=== PATIENT | male | born 1990 | race American Indian/Alaskan Native ===

== ENCOUNTER 2018-11-01 12:07 | Inpatient (IN) | payer OTHER ==
[2018-11-01] MEDS ORDERED: Iohexol 240 (50 ml) PO ONE (12:57)
--- NOTE | 2018-11-01 13:10 | ED PDOC ---
HPI: Abdomen Time Seen by Provider: 11/01/18 12:52 Chief Complaint (Nursing): Abdominal Pain Chief Complaint (Provider): abdominal pain, fever, diarrhea History Per: Patient History/Exam Limitations: no limitations Onset/Duration Of Symptoms: Days (2) Current Symptoms Are (Timing): Still Present Severity: Moderate Location Of Pain/Discomfort: Diffuse Quality Of Discomfort: Cramping Associated Symptoms: Diarrhea, Loss Of Appetite. denies: Nausea, Vomiting Exacerbating Factors: None Alleviating Factors: None Last Bowel Movement: Today Additional Complaint(s): 28yo male c/o abdominal pain, diffuse/crampy ongoing since sun night, last night had fevers and diarrhea overnight. Denies vomiting. Notes some loss appetite. No syncope, melena, rash, headache, cough or back pain. Notes had URI last week, sore throat, resolved spontaneously. Past Medical History Reviewed: Historical Data, Nursing Documentation, Vital Signs Vital Signs: Last Vital Signs Temp 98.6 F 11/01/18 12:16 Pulse 77 11/01/18 12:16 Resp 16 11/01/18 12:16 BP 155/75 H 11/01/18 12:16 Pulse Ox 96 11/01/18 12:16 - Medical History PMH: No Chronic Diseases - Surgical History Surgical History: No Surg Hx - Family History Family History: States: Unknown Family Hx - Allergies Allergies/Adverse Reactions: Allergies Allergy/AdvReac Type Severity Reaction Status Date / Time sulfamethoxazole Allergy RASH Verified 11/01/18 12:15 [From Bactrim] trimethoprim [From Bactrim] Allergy RASH Verified 11/01/18 12:15 Review of Systems ROS Statement: Except As Marked, All Systems Reviewed And Found Negative Constitutional: Positive for: Fever, Chills, Malaise. Negative for: Weight loss ENT: Positive for: Throat Pain. Negative for: Ear Pain Cardiovascular: Negative for: Chest Pain Respiratory: Negative for: Cough, Shortness of Breath Gastrointestinal: Positive for: Abdominal Pain, Diarrhea. Negative for: Nausea, Vomiting Genitourinary Male: Negative for: Dysuria Musculoskeletal: Negative for: Neck Pain, Arm Pain, Back Pain, Leg Pain Skin: Negative for: Rash, Lesions, Jaundice Neurological: Negative for: Weakness, Numbness, Change in Speech, Headache, Dizziness Physical Exam - Reviewed Nursing Documentation Reviewed: Yes Vital Signs Reviewed: Yes - Physical Exam Appears: Positive for: Well, Non-toxic, No Acute Distress Head Exam: Positive for: ATRAUMATIC, NORMAL INSPECTION, NORMOCEPHALIC Skin: Positive for: Normal Color, Warm, DRY Eye Exam: Positive for: EOMI, Normal appearance, PERRL ENT: Positive for: Normal ENT Inspection Neck: Positive for: Normal, Painless ROM Cardiovascular/Chest: Positive for: Regular Rate, Rhythm Respiratory: Positive for: CNT, Normal Breath Sounds Pulses-Radial (L): 3+/4+ Pulses-Radial (R): 3+/4+ Gastrointestinal/Abdominal: Positive for: Soft, Tenderness (mild nonfocal tenderness). Negative for: Distended, Guarding Back: Positive for: Normal Inspection Extremity: Positive for: Normal ROM Neurological/Psych: Positive for: Awake, Alert, Normal Tone, Oriented. Negative for: Motor/Sensory Deficits - Laboratory Results Result Diagrams: 11/01/18 13:00 11/01/18 13:30 - ECG O2 Sat by Pulse Oximetry: 96 Medical Decision Making Medical Decision Making: workup for abd pain w diarrhea, subjective fevers initiated labs, CT abd pelv and IVF ordered labs reviewed, reveal elev WBC 15.8 chem unremarkable lipase normal trace LFTs derangement elev Tbili 1.6 Ct abd pelv pending, endose Dr Watson 3pm Disposition - Clinical Impression Clinical Impression: Abdominal pain, Leukocytosis - Patient ED Disposition Is Patient to be Admitted: Transfer of Care - Disposition Disposition: Transfer of Care Disposition Time: 15:00 Condition: STABLE Forms: [employer] ([place]) Patient Signed Over To: Enriqueta Watson Handoff Comments: CT abd pelv and re-eval, dispo
[2018-11-01] MEDS ORDERED: Sodium Chloride 0.9% 1,000 ML IV STA (13:12)
[2018-11-01 13:14] LABS: BASO # 0.1 K/uL (0.0-0.2); BASO % 0.5 % (0.0-2.0); EOS % 0.1 % (0.0-4.0); HEMOGLOBIN 12.9 g/dL (12.0-18.0); LYMPH # 1.2 K/uL (1.0-4.3); LYMPH % 7.4 % (20.0-40.0); MEAN CELL VOLUME 90.1 fl (80.0-94.0); MEAN CORPUSCULAR HEMOGLOBIN 29.9 pg (27.0-31.0); MEAN CORPUSCULAR HGB CONC 33.2 g/dL (33.0-37.0); MEAN PLATELET VOLUME 10.2 fl (7.2-11.7); MONO # 1.4 K/uL (0.0-0.8); NEUT # 13.1 K/uL (1.8-7.0); NRBC % 0.1 % (0.0-0.0); PLATELET COUNT 246 K/uL (130-400); RBC 4.32 Mil/uL (4.40-5.90); RED CELL DISTRIBUTION WIDTH 12.2 % (11.5-14.5); WHITE BLOOD COUNT 15.8 K/uL (4.8-10.8)
[2018-11-01] MEDS ORDERED: Iohexol 240 (50 ml) ONE (13:29)
[2018-11-01 13:50] LABS: ALBUMIN 4.7 g/dL (3.5-5.0); ALT/SGPT 14 U/L (21-72); AST/SGOT 19 U/L (17-59); BLOOD UREA NITROGEN 9 mg/dl (9-20); CALCIUM 9.7 mg/dL (8.4-10.2); GFR NON-AFRICAN AMERICAN > 60; LIPASE 26 U/L (23-300)
[2018-11-01 13:51] LABS: LYMPHOCYTE 4 % (20-50); MONOCYTE 12 % (0-10); NEUTROPHIL 84 % (42-75); PLATELET ESTIMATE NORMAL (NORMAL); TOTAL CELLS COUNTED 100
[2018-11-01 13:55] LABS: URINE BACTERIA RARE (<OCC); URINE BILIRUBIN NEGATIVE (NEGATIVE); URINE BLOOD SMALL (NEGATIVE); URINE CLARITY SLIGHTY-CLOUDY (Clear); URINE COLOR AMBER (YELLOW); URINE GLUCOSE (UA) NEG (NEGATIVE); URINE LEUKOCYTE ESTERASE NEG Leu/uL (Negative); URINE PROTEIN >=500 mg/dL (NEGATIVE)
--- NOTE | 2018-11-01 15:26 | ED PDOC ---
- Laboratory Results Result Diagrams: 11/01/18 13:00 11/01/18 13:30 Lab Results: Total Bilirubin 1.6 mg/dl (0.2-1.3) H 11/01/18 13:30 AST 19 U/L (17-59) 11/01/18 13:30 ALT 14 U/L (21-72) L 11/01/18 13:30 Alkaline Phosphatase 94 U/L (38-126) 11/01/18 13:30 Total Protein 9.2 G/DL (6.3-8.2) H 11/01/18 13:30 Albumin 4.7 g/dL (3.5-5.0) 11/01/18 13:30 Globulin 4.5 gm/dL (2.2-3.9) H 11/01/18 13:30 Albumin/Globulin Ratio 1.0 (1.0-2.1) 11/01/18 13:30 Lipase 26 U/L (23-300) 11/01/18 13:30 Urine Color Donita (YELLOW) 11/01/18 13:20 Urine Clarity Slighty-cloudy (Clear) 11/01/18 13:20 Urine pH 6.0 (5.0-8.0) 11/01/18 13:20 Ur Specific [place] 1.028 (1.003-1.030) 11/01/18 13:20 Urine Protein >=500 mg/dL (NEGATIVE) 11/01/18 13:20 Urine Glucose (UA) Neg mg/dL (NEGATIVE) 11/01/18 13:20 Urine Ketones 80 mg/dL (NEGATIVE) 11/01/18 13:20 Urine Blood Small (NEGATIVE) 11/01/18 13:20 Urine Nitrate Negative (NEGATIVE) 11/01/18 13:20 Urine Bilirubin Negative (NEGATIVE) 11/01/18 13:20 Urine Urobilinogen 4.0 mg/dL (0.2-1.0) 11/01/18 13:20 Ur Leukocyte Esterase Neg Johny/uL (Negative) 11/01/18 13:20 Urine RBC (Auto) 10 /hpf (0-3) H 11/01/18 13:20 Urine Microscopic WBC 4 /hpf (0-5) 11/01/18 13:20 Urine Bacteria Rare (<OCC) 11/01/18 13:20 - ECG O2 Sat by Pulse Oximetry: 96 (RA) Pulse Ox Interpretation: Normal Medical Decision Making Medical Decision Making: Time: 15:00 Patient was endorsed to me by Dr. Paez pending CT Abdomen and final disposition. Provider evaluated patient at bedside: He is awake, comfortable, and resting with stable vitals. Patient is awaiting disposition. CT Abdomen: BOWEL: Stomach is collapsed not well evaluated in oral contrast small-bowel loops unremarkable. Oral contrast opacifies the right hemicolon and transverse colon quite well including the cecum. No obstruction. No gross mural thickening. APPENDIX: A dilated thick-walled appendix is appreciated with mildly prominent periappendiceal reaction but no free air or abscess there is no oral contrast in the appendix though the terminal ileum and cecum are well opacified. The appendix is dilated up to 18 mm greatest transverse diameter. PERITONEUM: Unremarkable. No free fluid. No free air. LYMPH NODES: Unremarkable. No enlarged lymph nodes. BLADDER: Unremarkable. REPRODUCTIVE: Unremarkable. BONES: No acute fracture. OTHER FINDINGS: None. IMPRESSION: Findings most compatible with unruptured appendicitis, possibly subacute or acute. CT evidence to suggest rupture at this time. 17:[address] Barone who will admit for acute appendicitis. Currently waiting for surgical coder to come down. provider discussed plan with patient who ag graciela. NPO and Zosyn ordered. Scribe Attestation: Documented by Georgia Goldberg, acting as a scribe for Enriqueta Watson MD Provider Scribe Attestation: All medical record entries made by the Scribe were at my direction and personally dictated by me. I have reviewed the chart and agree that the record accurately reflects my personal performance of the history, physical exam, medical decision making, and the department course for this patient. I have also personally directed, reviewed, and agree with the discharge instructions and disposition. Disposition Discussed With : Gemma Barone Doctor Will See Patient In The: Hospital Counseled Patient/Family Regarding: Studies Performed, Diagnosis - Clinical Impression Clinical Impression: Acute appendicitis - POA Present On Arrival: None - Disposition Disposition: Admitted as In-Patient Disposition Time: 16:50 Condition: FAIR
[2018-11-01] MEDS ORDERED: Sodium Chloride 0.9% 50 ML IV ONE (15:49)
[2018-11-01] MEDS ORDERED: Iohexol 300 100 ML IJ ONE (15:49)
--- NOTE | 2018-11-01 16:33 | CT ---
Date of service: 11/01/2018 PROCEDURE: CT Abdomen and Pelvis with contrast HISTORY: diffuse abd pain, diarrhea, fever COMPARISON: None. TECHNIQUE: Following oral and intravenous contrast administration, a CT examination of the abdomen and pelvis was performed from the domes of the diaphragms to the symphysis pubis with reformatted datasets provided not only axial but also sagittal and coronal series. Contrast dose: Omnipaque 300, 95 cc Radiation dose: Total exam DLP = 555.78 mGy-cm. This CT exam was performed using one or more of the following dose reduction techniques: Automated exposure control, adjustment of the mA and/or kV according to patient size, and/or use of iterative reconstruction technique. FINDINGS: LOWER THORAX: Unremarkable. LIVER: Unremarkable. No gross lesion or ductal dilatation. GALLBLADDER AND BILE DUCTS: Artifact versus sludge in the dependent gallbladder. The former is favored over the latter given lack of parallel nature of this subtle hyperdensity relative to gravity. The density appears somewhat angled rather than flat. PANCREAS: Unremarkable. No gross lesion or ductal dilatation. SPLEEN: Unremarkable. ADRENALS: Unremarkable. No mass. KIDNEYS AND URETERS: Unremarkable. No hydronephrosis. No solid mass. VASCULATURE: Unremarkable. No aortic aneurysm. No aortic atherosclerotic calcification or mural plaque present. BOWEL: Stomach is collapsed not well evaluated in oral contrast small-bowel loops unremarkable. Oral contrast opacifies the right hemicolon and transverse colon quite well including the cecum. No obstruction. No gross mural thickening. APPENDIX: A dilated thick-walled appendix is appreciated with mildly prominent periappendiceal reaction but no free air or abscess there is no oral contrast in the appendix though the terminal ileum and cecum are well opacified. The appendix is dilated up to 18 mm greatest transverse diameter. PERITONEUM: Unremarkable. No free fluid. No free air. LYMPH NODES: Unremarkable. No enlarged lymph nodes. BLADDER: Unremarkable. REPRODUCTIVE: Unremarkable. BONES: No acute fracture. OTHER FINDINGS: None. IMPRESSION: Findings most compatible with unruptured appendicitis, possibly subacute or acute. CT evidence to suggest rupture at this time. Findings discussed with Dr. Watson with written down and read back verification 11/01/2018 4:22 p.m..
[2018-11-01] MEDS ORDERED: Piperacillin/Tazobact 3.375 GM in Sodium Chloride 0.9% 100 ML IVPB STA (16:51)
[2018-11-01] MEDS ORDERED: Piperacillin/Tazobact 3.375 gm Inj IVPB ONE (17:07)
[2018-11-01 17:43] LABS: INR 1.3; PROTHROMBIN TIME 14.4 Seconds (9.8-13.1)
[2018-11-01 17:47] LABS: PARTIAL THROMBOPLASTIN TIME 33.1 Seconds (25.6-37.1)
[2018-11-01] MEDS ORDERED: Propofol 10 mg/ml Inj (20 ML) ONE ×2 (18:50→20:10)
[2018-11-01] MEDS ORDERED: Midazolam 2 MG/2 ML VIAL ONE (18:50)
[2018-11-01] MEDS ORDERED: Rocuronium 10 mg/ml (5 ml) ONE (18:51)
[2018-11-01] MEDS ORDERED: Lactated Ringer's 1,000 ML IV ONE ×2 (18:53→19:59)
[2018-11-01] MEDS ORDERED: Neostigmine 1:1000 (1 mg/ml) Inj ONE (19:15)
[2018-11-01] MEDS ORDERED: HYDROmorphone 0.5 mg/0.5 ml ISec IVP PRN (19:16)
--- NOTE | 2018-11-01 19:16 | CARD ---
APPROVED REPORT Date of service: 11/01/2018 EKG Measurement Heart [id number] <Conclusion> Normal sinus rhythm Right axis deviation Incomplete right bundle branch block Borderline ECG
[2018-11-01] MEDS ORDERED: Lactated Ringer's 1,000 ML IV SCH (19:30)
--- NOTE | 2018-11-01 20:14 | CP.PCM.CON ---
Past Patient History - Past Social History Smoking Status: Never Smoked - MUSCULOSKELETAL/RHEUMATOLOGICAL Hx Falls: No - PSYCHIATRIC Hx Substance Use: Yes - SURGICAL HISTORY Hx Surgeries: No - ANESTHESIA Hx Anesthesia: No Meds Allergies/Adverse Reactions: Allergies Allergy/AdvReac Type Severity Reaction Status Date / Time sulfamethoxazole Allergy RASH Verified 11/01/18 12:15 [From Bactrim] trimethoprim [From Bactrim] Allergy RASH Verified 11/01/18 12:15 - Medications Medications: Current Medications Hydromorphone HCl (Dilaudid) 0.5 mg IVP Q5M PRN PRN Reason: Pain, severe (8-10) Stop: 11/01/18 21:17 Lactated Ringer's (Lactated Ringer's) 1,000 mls @ 125 mls/hr IV .Q8H MARQUEZ Ondansetron HCl (Zofran Inj) 4 mg IVP ONCE PRN PRN Reason: Nausea/Vomiting Stop: 11/01/18 21:17 Results - Vital Signs Recent Vital Signs: Last Vital Signs Temp 97 F L 11/01/18 18:33 Pulse 78 11/01/18 18:33 Resp 19 11/01/18 18:33 BP 120/78 11/01/18 18:33 Pulse Ox 98 11/01/18 18:33 - Labs Result Diagrams: 11/01/18 13:00 11/01/18 13:30 Labs: Laboratory Results - last 24 hr 11/01/18 11/01/18 11/01/18 13:00 13:20 13:30 WBC 15.8 H RBC 4.32 L Hgb 12.9 Hct 39.0 MCV 90.1 MCH 29.9 MCHC 33.2 RDW 12.2 Plt Count 246 MPV 10.2 Neut % (Auto) 83.0 H Lymph % (Auto) 7.4 L [place] % (Auto) 9.0 Eos % (Auto) 0.1 Baso % (Auto) 0.5 Neut # (Auto) 13.1 H Lymph # (Auto) 1.2 [place] # (Auto) 1.4 H Eos # (Auto) 0.0 Baso # (Auto) 0.1 Neutrophils % (Manual) 84 H Lymphocytes % (Manual) 4 L Monocytes % (Manual) 12 H Platelet Estimate Normal RBC Morphology Normal PT INR APTT Sodium 140 Potassium 4.0 Chloride 100 Carbon Dioxide 25 Anion Gap 19 BUN 9 Creatinine 0.8 Est GFR ( Amer) > 60 Est GFR (Non-Af Amer) > 60 Random Glucose 103 Calcium 9.7 Total Bilirubin 1.6 H AST 19 ALT 14 L Alkaline Phosphatase 94 Total Protein 9.2 H Albumin 4.7 Globulin 4.5 H Albumin/Globulin Ratio 1.0 Lipase 26 Urine Color Donita Urine Clarity Slighty-cloudy Urine pH 6.0 Ur Specific [place] 1.028 Urine Protein >=500 Urine Glucose (UA) Neg Urine Ketones 80 Urine Blood Small Urine Nitrate Negative Urine Bilirubin Negative Urine Urobilinogen 4.0 Ur Leukocyte Esterase Neg Urine RBC (Auto) 10 H Urine Microscopic WBC 4 Urine Bacteria Rare 11/01/18 17:10 WBC RBC Hgb Hct MCV MCH MCHC RDW Plt Count MPV Neut % (Auto) Lymph % (Auto) [place] % (Auto) Eos % (Auto) Baso % (Auto) Neut # (Auto) Lymph # (Auto) [place] # (Auto) Eos # (Auto) Baso # (Auto) Neutrophils % (Manual) Lymphocytes % (Manual) Monocytes % (Manual) Platelet Estimate RBC Morphology PT 14.4 H INR 1.3 APTT 33.1 Sodium Potassium Chloride Carbon Dioxide Anion Gap BUN Creatinine Est GFR ( Amer) Est GFR (Non-Af Amer) Random Glucose Calcium Total Bilirubin AST ALT Alkaline Phosphatase Total Protein Albumin Globulin Albumin/Globulin Ratio Lipase Urine Color Urine Clarity Urine pH Ur Specific [place] Urine Protein Urine Glucose (UA) Urine Ketones Urine Blood Urine Nitrate Urine Bilirubin Urine Urobilinogen Ur Leukocyte Esterase Urine RBC (Auto) Urine Microscopic WBC Urine Bacteria
[2018-11-01] MEDS ORDERED: oxyCODONE 5 mg Immediate Release Tab PO PRN (20:16)
--- NOTE | 2018-11-01 20:18 | PCM.SURG1 ---
Surgeon's Initial Post Op Note - Surgeon's Notes Surgeon: Dr. Barone Sales Record Clerk: Corey PGY2 Type of Anesthesia: General Endo Anesthesia Administered By: Dr. Reilly Pre-Operative Diagnosis: Acute appendicitis Operative Findings: Acute appendicitis with extensive inflammation and adhesions Post-Operative Diagnosis: Acute appendicitis Operation Performed: Laparoscopic Appendectomy Specimen/Specimens Removed: Appendix Estimated Blood Loss: EBL {In ML}: 15 Blood Products Given: N/A Drains Used: No Drains Post-Op Condition: Good Date of Surgery/Procedure: 11/01/18 Time of Surgery/Procedure: 19:30
--- NOTE | 2018-11-01 20:18 | PCM.OP ---
Operative Report - Operative Report Date of Surgery/Procedure: 11/01/18 Time of Surgery/Procedure: 19:30 Surgeon: Dr. Barone Business Writer: Corey NANCE Anesthesia/Sedation: General Endotracheal Dr. Reilly Pre-Operative Diagnosis: Acute appendicitis Post-Operative Diagnosis: Acute Appendicitis Indication for Surgery: Acute Appendicitis Operative Findings: extensive adhesions, inflammation, acute appendicitis Procedure/Operation Description: Procedure: Laparoscopic Appendectomy 28M with no PMH who was admitted for acute appendicitis. Patient planned for Laparoscopic Appendectomy possible open. Consent was obtained prior to the procedure. Risks and benefits were discussed with the patient who verbalized understanding and agreement. Consent was obtained prior to the procedure. Risks and benefits were discussed with the patient who verbalized understanding and agreement. Patient was take to the operating room and placed in supine position. SCDs were applied to patient's legs. General endotracheal anesthesia was administered for the procedure. Patient was prepped with chlorhexadine and drapped in the usual sterile fashion. Timeout was performed. An infraumbilical incision was made using #11 blade. Veress needle was inserted into incision and CO2 insufflation was attached. The abdomen was insufflated to optimal pressure of 15 mmHg. Veress needle was removed and a 5 mm trocar was inserted. 5 mm 0 degree scope was inserted and abdominal contents were visualized. No injuries or gross spillage noted. Two more incisions were made using #11 blade in the LLQ, (one horizontal and superior plus one oblique and more inferior). 5mm trocar was inserted in the more superior while a 12 mm trocar was inserted in oblique inferior incision. Both were inserted under direct visualization. Next, the appendix was identified in the RLQ. The appendix was grossly inflammed. There were extensive adhesions in RLQ to right colon,terminal ileum, appendix, as well as redundant sigmoid colon. Appendix was grasped and bluntly dissected intially. Laparoscopic ligasure was used to assist in the dissection. After meticulous dissection, appendix was freed up. Endoscopic YASEMIN stapler (white load) was used to staple across the appendix. Endocatch bag was used to collect the specimen. There was n o evidence of bleeding from either staple line. The area was irrigated and suctioned. Appendix was removed from the inferior LLQ incision. The abdomen was deflated and all ports removed. Inferior LLQ incision fascia was closed using 0 Vicryl on UR6 needle. All three incision were then closed with subcuticular 4-0 monocryl. Dermabond was also applied to the three incisions. All nursing counts were correct and confirmed. Patient tolerated procedure well with no apparent complications. Patient was extubated and trasnferred to PACU for recovery. Estimated Blood Loss: 10 cc Complications: None Specimen: Appendix Discharge & Condition: Good, transferred to floor to be discharged in the morning
--- NOTE | 2018-11-01 21:55 | CP.PCM.HP ---
History of Present Illness - History of Present Illness History of Present Illness: General Surgery H&P for Dr. Barone Reason for Consult: Acute appendicitis 28 M with no significant PMH [facility]. Patient was seen and evaluated in the ED. Patient states pain began 2 dyas ago. He states that it began at 10 pm after eating. He report to never having pain like this before. He rates pain as severe. He describes pain as constant and sharp. He stats that pain initially began timothy-umbilical then radiated to RLQ. He admits to associated nausea, anorexia and diarrhea. Patient also reports subjective fever/chills. Denies cp, SOB, constipation, incontinence, urinary symptoms. PMH: denies PSH: denies ALL: NKDA Present on Admission - Present on Admission Any Indicators Present on Admission: No History of DVT/PE: No History of Uncontrolled Diabetes: No Urinary Catheter: No Decubitus Ulcer Present: No Review of Systems - Review of Systems All systems: reviewed and no additional remarkable complaints except (as per HPI) Past Patient History - Past Social History Smoking Status: Never Smoked - MUSCULOSKELETAL/RHEUMATOLOGICAL Hx Falls: No - PSYCHIATRIC Hx Substance Use: Yes - SURGICAL HISTORY Hx Surgeries: No - ANESTHESIA Hx Anesthesia: No Meds Allergies/Adverse Reactions: Allergies Allergy/AdvReac Type Severity Reaction Status Date / Time sulfamethoxazole Allergy RASH Verified 11/01/18 12:15 [From Bactrim] trimethoprim [From Bactrim] Allergy RASH Verified 11/01/18 12:15 Physical Exam - Constitutional Appears: No Acute Distress - Head Exam Head Exam: ATRAUMATIC, NORMOCEPHALIC - Eye Exam Eye Exam: EOMI, Normal appearance Pupil Exam: PERRL - ENT Exam ENT Exam: Mucous Membranes Moist - Respiratory Exam Respiratory Exam: NORMAL BREATHING PATTERN - Cardiovascular Exam Cardiovascular Exam: REGULAR RHYTHM - GI/Abdominal Exam GI & Abdominal Exam: Distended (mild), Soft, Tenderness (RLQ). absent: Firm, Guarding, Rebound, Rigid Additional comments: + McBurney's - Rectal Exam Rectal Exam: Deferred - Extremities Exam Extremities exam: Positive for: normal capillary refill, pedal pulses present. Negative for: calf tenderness - Back Exam Back exam: absent: CVA tenderness (L), CVA tenderness (R) - Neurological Exam Neurological exam: Alert, Oriented x3 - Psychiatric Exam Psychiatric exam: Normal Affect, Normal Mood - Skin Skin Exam: Dry, Intact, Normal Color, Warm Results - Vital Signs Recent Vital Signs: Last Vital Signs Temp 98.2 F 11/01/18 21:35 Pulse 87 11/01/18 21:35 Resp 19 11/01/18 21:35 BP 131/84 11/01/18 21:35 Pulse Ox 97 11/01/18 21:35 - Labs Result Diagrams: 11/01/18 13:00 11/01/18 13:30 Labs: Laboratory Results - last 24 hr 11/01/18 11/01/18 11/01/18 13:00 13:20 13:30 WBC 15.8 H RBC 4.32 L Hgb 12.9 Hct 39.0 MCV 90.1 MCH 29.9 MCHC 33.2 RDW 12.2 Plt Count 246 MPV 10.2 Neut % (Auto) 83.0 H Lymph % (Auto) 7.4 L [place] % (Auto) 9.0 Eos % (Auto) 0.1 Baso % (Auto) 0.5 Neut # (Auto) 13.1 H Lymph # (Auto) 1.2 [place] # (Auto) 1.4 H Eos # (Auto) 0.0 Baso # (Auto) 0.1 Neutrophils % (Manual) 84 H Lymphocytes % (Manual) 4 L Monocytes % (Manual) 12 H Platelet Estimate Normal RBC Morphology Normal PT INR APTT Sodium 140 Potassium 4.0 Chloride 100 Carbon Dioxide 25 Anion Gap 19 BUN 9 Creatinine 0.8 Est GFR ( Amer) > 60 Est GFR (Non-Af Amer) > 60 Random Glucose 103 Calcium 9.7 Total Bilirubin 1.6 H AST 19 ALT 14 L Alkaline Phosphatase 94 Total Protein 9.2 H Albumin 4.7 Globulin 4.5 H Albumin/Globulin Ratio 1.0 Lipase 26 Urine Color Donita Urine Clarity Slighty-cloudy Urine pH 6.0 Ur Specific [place] 1.028 Urine Protein >=500 Urine Glucose (UA) Neg Urine Ketones 80 Urine Blood Small Urine Nitrate Negative Urine Bilirubin Negative Urine Urobilinogen 4.0 Ur Leukocyte Esterase Neg Urine RBC (Auto) 10 H Urine Microscopic WBC 4 Urine Bacteria Rare Blood Type Antibody Screen BBK History Checked 11/01/18 11/01/18 17:10 17:10 WBC RBC Hgb Hct MCV MCH MCHC RDW Plt Count MPV Neut % (Auto) Lymph % (Auto) [place] % (Auto) Eos % (Auto) Baso % (Auto) Neut # (Auto) Lymph # (Auto) [place] # (Auto) Eos # (Auto) Baso # (Auto) Neutrophils % (Manual) Lymphocytes % (Manual) Monocytes % (Manual) Platelet Estimate RBC Morphology PT 14.4 H INR 1.3 APTT 33.1 Sodium Potassium Chloride Carbon Dioxide Anion Gap BUN Creatinine Est GFR ( Amer) Est GFR (Non-Af Amer) Random Glucose Calcium Total Bilirubin AST ALT Alkaline Phosphatase Total Protein Albumin Globulin Albumin/Globulin Ratio Lipase Urine Color Urine Clarity Urine pH Ur Specific [place] Urine Protein Urine Glucose (UA) Urine Ketones Urine Blood Urine Nitrate Urine Bilirubin Urine Urobilinogen Ur Leukocyte Esterase Urine RBC (Auto) Urine Microscopic WBC Urine Bacteria Blood Type O POSITIVE Antibody Screen Negative BBK History Checked No verified bt Assessment & Plan - Assessment and Plan (Free Text) Assessment: 28 M who presents with acute appendicitis Plan: NPO IVF IV abx Analgesics/Anti-emetics PRN Plan for laparoscopic appendectomy in OR tonight Discussed with Dr. Abisai Nicole PGY2 - Date & Time Date: 11/01/18 Time: 18:45
[2018-11-01] MEDS: Lactated Ringer's 1,000 ML IV SCH (21:57)
[2018-11-01] MEDS: Piperacillin/Tazobact 3.375 GM in Sodium Chloride 0.9% 100 ML IVPB SCH (22:01)
[2018-11-02] MEDS: Piperacillin/Tazobact 3.375 GM in Sodium Chloride 0.9% 100 ML IVPB SCH ×2 (04:10→09:26)
[2018-11-02] MEDS: Lactated Ringer's 1,000 ML IV SCH ×3 (04:12→13:35)
--- NOTE | 2018-11-02 07:35 | CP.PCM.PN ---
Objective - Vital Signs/Intake and Output Vital Signs (last 24 hours): Temp Pulse Resp BP Pulse Ox 99.4 F 78 18 100/54 L 95 11/02/18 05:18 11/02/18 05:18 11/02/18 05:18 11/02/18 05:18 11/02/18 05:18 Intake and Output: 11/02/18 11/02/18 06:59 18:59 Intake Total 225 Balance 225 - Medications Medications: Current Medications Acetaminophen (Tylenol 325mg Tab) 650 mg PO Q6 PRN PRN Reason: Fever >100.4 F Piperacillin Sod/Tazobactam (Sod 3.375 gm/ Sodium Chloride) 100 mls @ 100 mls/hr IVPB Q6 MARQUEZ; Protocol Last Admin: 11/02/18 04:10 Dose: 100 mls/hr Lactated Ringer's (Lactated Ringer's) 1,000 mls @ 125 mls/hr IV .Q8H MARQUEZ Last Admin: 11/02/18 05:39 Dose: Not Given Ibuprofen (Motrin Tab) 800 mg PO Q8 PRN PRN Reason: Pain, moderate (4-7) Last Admin: 11/01/18 22:30 Dose: 800 mg Ondansetron HCl (Zofran Inj) 4 mg IVP Q6 PRN PRN Reason: Nausea/Vomiting - Labs Labs: 11/01/18 13:00 11/01/18 13:30 PT 14.4 Seconds (9.8-13.1) H 11/01/18 17:10 INR 1.3 11/01/18 17:10 APTT 33.1 Seconds (25.6-37.1) 11/01/18 17:10
[2018-11-02 08:01] VITALS: BP 104/63; PULSE 86; RESP 20; TEMP 98.6
--- NOTE | 2018-11-02 11:05 | CP.PCM.DIS ---
Provider - Provider Date of Admission: 11/01/18 16:52 Attending physician: Gemma Barone MD Consults: none Time Spent in preparation of Discharge (in minutes): 40 Diagnosis - Discharge Diagnosis (1) Acute appendicitis Status: Acute (2) S/P laparoscopic appendectomy Status: Acute Hospital Course - Lab Results Lab Results: Most Recent Lab Values WBC 15.8 K/uL (4.8-10.8) H 11/01/18 13:00 RBC 4.32 Mil/uL (4.40-5.90) L 11/01/18 13:00 Hgb 12.9 g/dL (12.0-18.0) 11/01/18 13:00 Hct 39.0 % (35.0-51.0) 11/01/18 13:00 MCV 90.1 fl (80.0-94.0) 11/01/18 13:00 MCH 29.9 pg (27.0-31.0) 11/01/18 13:00 MCHC 33.2 g/dL (33.0-37.0) 11/01/18 13:00 RDW 12.2 % (11.5-14.5) 11/01/18 13:00 Plt Count 246 K/uL (130-400) 11/01/18 13:00 MPV 10.2 fl (7.2-11.7) 11/01/18 13:00 Neut % (Auto) 83.0 % (50.0-75.0) H 11/01/18 13:00 Lymph % (Auto) 7.4 % (20.0-40.0) L 11/01/18 13:00 [place] % (Auto) 9.0 % (0.0-10.0) 11/01/18 13:00 Eos % (Auto) 0.1 % (0.0-4.0) 11/01/18 13:00 Baso % (Auto) 0.5 % (0.0-2.0) 11/01/18 13:00 Neut # (Auto) 13.1 K/uL (1.8-7.0) H 11/01/18 13:00 Lymph # (Auto) 1.2 K/uL (1.0-4.3) 11/01/18 13:00 [place] # (Auto) 1.4 K/uL (0.0-0.8) H 11/01/18 13:00 Eos # (Auto) 0.0 K/uL (0.0-0.7) 11/01/18 13:00 Baso # (Auto) 0.1 K/uL (0.0-0.2) 11/01/18 13:00 Neutrophils % (Manual) 84 % (42-75) H 11/01/18 13:00 Lymphocytes % (Manual) 4 % (20-50) L 11/01/18 13:00 Monocytes % (Manual) 12 % (0-10) H 11/01/18 13:00 Platelet Estimate Normal (NORMAL) 11/01/18 13:00 RBC Morphology Normal (NORMAL) 11/01/18 13:00 PT 14.4 Seconds (9.8-13.1) H 11/01/18 17:10 INR 1.3 11/01/18 17:10 APTT 33.1 Seconds (25.6-37.1) 11/01/18 17:10 Sodium 140 mmol/l (132-148) 11/01/18 13:30 Potassium 4.0 MMOL/L (3.6-5.0) 11/01/18 13:30 Chloride 100 mmol/L (98-107) 11/01/18 13:30 Carbon Dioxide 25 mmol/L (22-30) 11/01/18 13:30 Anion Gap 19 (10-20) 11/01/18 13:30 BUN 9 mg/dl (9-20) 11/01/18 13:30 Creatinine 0.8 mg/dl (0.8-1.5) 11/01/18 13:30 Est GFR ( Amer) > 60 11/01/18 13:30 Est GFR (Non-Af Amer) > 60 11/01/18 13:30 Random Glucose 103 mg/dL (75-110) 11/01/18 13:30 Calcium 9.7 mg/dL (8.4-10.2) 11/01/18 13:30 Total Bilirubin 1.6 mg/dl (0.2-1.3) H 11/01/18 13:30 AST 19 U/L (17-59) 11/01/18 13:30 ALT 14 U/L (21-72) L 11/01/18 13:30 Alkaline Phosphatase 94 U/L (38-126) 11/01/18 13:30 Total Protein 9.2 G/DL (6.3-8.2) H 11/01/18 13:30 Albumin 4.7 g/dL (3.5-5.0) 11/01/18 13:30 Globulin 4.5 gm/dL (2.2-3.9) H 11/01/18 13:30 Albumin/Globulin Ratio 1.0 (1.0-2.1) 11/01/18 13:30 Lipase 26 U/L (23-300) 11/01/18 13:30 Urine Color [place] (YELLOW) 11/01/18 13:20 Urine Clarity Slighty-cloudy (Clear) 11/01/18 13:20 Urine pH 6.0 (5.0-8.0) 11/01/18 13:20 Ur Specific [place] 1.028 (1.003-1.030) 11/01/18 13:20 Urine Protein >=500 mg/dL (NEGATIVE) 11/01/18 13:20 Urine Glucose (UA) Neg mg/dL (NEGATIVE) 11/01/18 13:20 Urine Ketones 80 mg/dL (NEGATIVE) 11/01/18 13:20 Urine Blood Small (NEGATIVE) 11/01/18 13:20 Urine Nitrate Negative (NEGATIVE) 11/01/18 13:20 Urine Bilirubin Negative (NEGATIVE) 11/01/18 13:20 Urine Urobilinogen 4.0 mg/dL (0.2-1.0) 11/01/18 13:20 Ur Leukocyte Esterase Neg Johny/uL (Negative) 11/01/18 13:20 Urine RBC (Auto) 10 /hpf (0-3) H 11/01/18 13:20 Urine Microscopic WBC 4 /hpf (0-5) 11/01/18 13:20 Urine Bacteria Rare (<OCC) 11/01/18 13:20 Blood Type O POSITIVE 11/01/18 17:10 Antibody Screen Negative 11/01/18 17:10 BBK History Checked No verified bt 11/01/18 17:10 - Hospital Course Hospital Course: 28 [facility] Patient was seen and evaluated in the ED. Patient states pain began 2 dyas ago. He states that it began at 10 pm after eating. He report to never having pain like this before. He rates pain as severe. He describes pain as constant and sharp. He stats that pain initially began timothy-umbilical then radiated to RLQ. He admits to associated nausea, anorexia and diarrhea. Patient also reports subjective fever/chills. Denies cp, SOB, constipation, incontinence, urinary symptoms. Patient was admitted for acute appendicitis confirmed by CT abd/pelvis. He was admitted to Dr. Barone's service. Patient was made NPO. He was start on IV fluids and IV abx. Patient was sent to OR directly from ER for laparocopic appendectomy. The patient tolerated the procedure with no apparent complications. Patient was given regular diet and ordered pain medication. Patient did well overnight. Next morning, he was tolerating diet, ambulating, and urinating without difficulty. Patient deemed stable for discharge by Dr. Barone. Patient instructed to follow up 1 week as outpatient. Discharge in structions were given. (This is a summary of the hospital course. Please refer to EMR for more details.) - Date & Time of H&P Date of H&P: 11/01/18 Time of H&P: 19:15 Discharge Exam - Head Exam Head Exam: ATRAUMATIC, NORMOCEPHALIC - Eye Exam Eye Exam: EOMI, Normal appearance Pupil Exam: PERRL - ENT Exam ENT Exam: Mucous Membranes Moist - Respiratory Exam Respiratory Exam: NORMAL BREATHING PATTERN - Cardiovascular Exam Cardiovascular Exam: REGULAR RHYTHM - GI/Abdominal Exam GI & Abdominal Exam: Normal Bowel Sounds, Soft, Tenderness (mild at surgical sites). absent: Distended, Firm, Guarding, Hernia, Rebound, Rigid - Extremities Exam Extremities exam: normal capillary refill, pedal pulses present - Back Exam Back exam: absent: CVA tenderness (L), CVA tenderness (R) - Neurological Exam Neurological exam: Alert, CN II-XII Intact, Normal Gait, Oriented x3 - Psychiatric Exam Psychiatric exam: Normal Affect, Normal Mood - Skin Skin Exam: Dry, Intact, Normal Color, Warm Discharge Plan - Follow Up Plan Condition: STABLE Disposition: HOME/ ROUTINE Instructions: Appendectomy, Laparoscopic Surgery (DC) Additional Instructions: Take OTC motrin for pain as needed Keep area clean and dry May shower No heavy lifting for 4 weeks No dietary restrictions Follow up with Dr. Barone as outpatient within 1 week Call 's office for any issues Referrals: Gemma Barone MD [Staff Provider] -
[2018-11-03 17:23] VITALS: O2SAT 96
== END 2018-11-02 14:03 | disposition home or self-care (01) | DRG 225 ==
LOC: H.ER 12:07 → H.ERHOLD 16:52 → H.MEDSURG1 21:35
PROVIDERS: ADMIT Specialist; ATTEND Specialist
PROC: 0DTJ4ZZ Resection of Appendix, Percutaneous Endoscopic Approach (ICD-10-PCS; principal; 2018-11-01 19:00)
DX: K35.80 Unspecified acute appendicitis (principal); J06.9 Acute upper respiratory infection, unspecified; K66.0 Peritoneal adhesions (postprocedural) (postinfection)